=== PATIENT | female | born 1955 | race Caucasian/White ===

== ENCOUNTER 2017-02-25 12:41 | Inpatient (IN) | payer BC ==
--- NOTE | ~2017-02-25 | HP ---
History And Physical [place] [id number] [facility] [place]. [address] NAME: BRIDGETTE FUENTES : 53 STATUS : ADM IN [facility]#: [id number] AGE: 61 ADM/REG DATE : 02/25/17 MR#: [id number] REPORT SERV DATE: 02/25/17 DICTATED BY: FAIZA BROWNING DATE: 02/25/17 REPORT STATUS : Draft TRANSCRIBED BY: JONNY DATE: 02/25/17 DATE OF ADMISSION: 02/25/2017 CHIEF COMPLAINT: Left-sided chest pain and shortness of breath. HISTORY OF PRESENT ILLNESS: The patient is a very pleasant 61-year-old white female. She states about three weeks ago, she noticed some pain in her left side of her chest wall. She had extensive coughing over the next few weeks, felt short of breath, but did not seek medical care until today when she went to walk-in clinic. She was told she had some fluid around her left lung and presented to [facility] Emergency Department. She has not had fever. She has not had anything in the way of sputum. She states she just tends to cough when she is upright. She has a history of previous tobacco abuse, quit some 18 years ago. She has really no other complaints today. PAST MEDICAL HISTORY: Positive for dry eyes. PAST SURGICAL HISTORY: She has had two C-sections, cholecystectomy, and left adrenalectomy for an unknown reason. FAMILY HISTORY: Her father of lung cancer but she was a heavy smoker. Her mom had a cerebral hemorrhage and at 62. HOME MEDICATIONS: Reviewed and attached. REVIEW OF SYSTEMS: Full 10-point review of systems obtained. Pertinent positives mentioned in the HPI. PHYSICAL EXAMINATION: VITAL SIGNS: Blood pressure 127/78, temperature 97.4, pulse 80, respiratory rate 16, sats are 99% on room air. GENERAL: Well-developed white female, in no apparent distress. HEENT: Normocephalic, atraumatic. Throat is clear. NECK: Supple. HEART: Regular rate and rhythm. LUNGS: Grossly clear. ABDOMEN: Soft, Nontender, nondistended. EXTREMITIES: Warm and dry. SKIN: Intact. She has no peripheral edema. LABORATORY AND X-RAY: Hemoglobin and hematocrit 15 and 45, white count 8.2, platelets are 211. Coags are normal. Initial chest x-ray showed a large left pneumothorax. Chemistry: Basic metabolic panel is normal. Glucose is 122, calcium 9.6, magnesium 2.1. Troponin is 0.02. TSH is normal. BNP is normal. Follow up chest x-ray after chest tube placement shows reduced pneumothorax on the left side. ASSESSMENT/PLAN: History And Physical [address] [place]. [address] NAME: BRIDGETTE FUENTES : 53 STATUS : ADM IN [facility]#: [id number] AGE: 61 ADM/REG DATE : 02/25/17 MR#: [id number] REPORT SERV DATE: 02/25/17 DICTATED BY: FAIZA BROWNING DATE: 02/25/17 REPORT STATUS : Draft TRANSCRIBED BY: JONNY DATE: 02/25/17 1. Spontaneous pneumothorax in patient with previous tobacco abuse. We will place oxygen. We will continue chest tube for now. We will have Pulmonary to see her in consultation to help with decision regarding pulling of chest tube and management. 2. Deep venous thrombosis prophylaxis, subcutaneous heparin. 3. Disposition, pending above aforementioned plan and workup. ELENA/JONNY Faiza Browning M.D. / [id number] CC: Rell Maher M.D.
--- NOTE | ~2017-02-25 | OP ---
Record Of Operation [facility] [address] [place]. [address] NAME: BRIDGETTE FUENTES : 53 STATUS : ADM Diana PAT#: [id number] AGE: 61 ADM/REG DATE : 02/25/17 MR#: [id number] REPORT SERV DATE: 02/28/17 DICTATED BY: ADAM MALONEY JR. DATE: 02/28/17 REPORT STATUS : Draft TRANSCRIBED BY: MODL DATE: 02/28/17 DATE OF PROCEDURE: 02/28/2017 PREOPERATIVE DIAGNOSIS: Primary spontaneous pneumothorax with persistent air leak. POSTOPERATIVE DIAGNOSIS: Primary spontaneous pneumothorax with persistent air leak. NAME OF OPERATION: Bronchoscopy, left thoracoscopy with left lower lobe bullectomy, parietal pleurectomy, chemical pleurodesis with Betadine, intercostal nerve block. SURGEON: Adam Maloney M.D. RESIDENT SURGEON: René Atkinson MD. SALES VICE PRESIDENT: Alana Jiménez. ANESTHESIA: General endotracheal. FINDINGS: The patient was noted to have a small bullous lesion in the base of the left lower lobe. We could not demonstrate any other air leaks. We could not find the apical blebs. A saline test was performed in which no air leaks were seen after the wedge excision. The parietal pleurectomy as well as chemical pleurodesis were performed. On bronchoscopy, there was no endobronchial lesions or contraindications to surgery. Mucous secretions were evacuated. There was a lot of subcutaneous emphysema from her obvious pneumothorax and air leak. DETAILS OF OPERATION: After adequate general anesthesia, the patient was intubated. Her left lung was medially isolated. A bronchoscopy was performed noting no endobronchial lesions. Mucous secretions were evacuated. A left-sided double-lumen tube was then secured. The patient was positioned in the right lateral decubitus position. The left chest was prepped and draped in routine sterile fashion. A small incision was made overlying the lower intercostal space. A separate anterior trocar incision was also made. Through these two incision sites the above findings were noted. There was a bullous lesion in the left lower lobe at the base, which was wedged out with multiple firings of [place] stapler with tissue reinforcements. An intercostal nerve block was then performed. The parietal pleurectomy was then performed. Adequate hemostasis was obtained. A 20 mL of Betadine mixed with 80 mL of normal saline was then instilled in the chest cavity. A 28- Icelandic chest tube was placed. The lung was reinflated. The trocar sites were closed with running Vicryl sutures. The skin was closed with running monofilament suture. A Dermabond dressing was applied and the procedure was terminated at this point. The patient tolerated the procedure well and taken to recovery room in stable condition. AMY/JONNY Record Of [address] [place]. [address] NAME: BRIDGETTE FUENTES : 53 STATUS : ADM Diana PAT#: [id number] AGE: 61 ADM/REG DATE : 02/25/17 MR#: [id number] REPORT SERV DATE: 02/28/17 DICTATED BY: ADAM MALONEY JR. DATE: 02/28/17 REPORT STATUS : Draft TRANSCRIBED BY: JONNY DATE: 02/28/17 Adam Maloney Jr., M.D. / [id number] CC: Rell Fernando M.D.
--- NOTE | ~2017-02-25 | CN ---
Consultation Report [facility] [address] [place]. [address] NAME: BRIDGETTE FUENTES : 53 STATUS : ADM Diana PAT#: [id number] AGE: 61 ADM/REG DATE : 02/25/17 MR#: [id number] REPORT SERV DATE: 02/28/17 DICTATED BY: ADAM MALONEY JR. DATE: 02/28/17 REPORT STATUS : Draft TRANSCRIBED BY: MODMadhuri DATE: 02/28/17 CONSULTATION HISTORY AND PHYSICAL DATE OF CONSULTATION: 02/28/2017 REASON FOR CONSULTATION: Left spontaneous pneumothorax. BRIEF HISTORY: This is a 61-year-old white female with a very remote past smoking history who reports she was in her yard eating lunch when she had a tussive episode and then describes progressive pleuritic-type pain as well as shortness of breath, that prompted her to present to the emergency department. She underwent a chest x-ray, which demonstrated a left-sided pneumothorax and a small-bore chest tube was placed. Following the chest tube placement, Pulmonary services managed the chest tube, clamped it for approximately 24 hours and then removed it. Followup chest x-ray approximately 24 hours later demonstrated increasing subcutaneous emphysema as well as increasing left pneumothorax with mediastinal shift. We are asked to see the patient to discuss possible thoracoscopic pleurodesis. PAST MEDICAL HISTORY: Only significant for remote smoking history where she smoked over one pack per day for approximately two to three years, but quit over 18 years ago. SOCIAL HISTORY: The patient is and retired. She denies any alcohol or illicit drug use. FAMILY HISTORY: Significant for father with lung cancer. ALLERGIES: SULFA DRUGS. HOME MEDICATIONS: Include vitamin D3, vitamin B12, and Restasis. REVIEW OF SYSTEMS: Significant for shortness of breath and left-sided pleuritic-type pain. A complete 12-point review of system was performed. All other systems are negative, except for the above- mentioned pertinent positives in the history of present illness. PHYSICAL EXAMINATION: GENERAL: This is a 61-year-old white female, who is alert and oriented, in no acute distress. HEENT: Normocephalic, atraumatic. Pupils are equal, round, and reactive to light. Ears, nose, and throat without lesions or exudate. NECK: Supple with no lymphadenopathy, JVD, or bruits. CHEST: Symmetrical with no obvious chest wall deformities. CARDIOVASCULAR: Regular rate and rhythm. S1 and S2. No murmurs, rubs, or gallops. RESPIRATORY: Decreased breath sounds on the left with palpable subcutaneous emphysema. ABDOMEN: Soft, nontender, and nondistended with positive bowel sounds in all four Consultation Report [place] [id number] [place]. [address] NAME: BRIDGETTE FUENTES : 53 STATUS : ADM Diana PAT#: [id number] AGE: 61 ADM/REG DATE : 02/25/17 MR#: [id number] REPORT SERV DATE: 02/28/17 DICTATED BY: ADAM MALONEY JR. DATE: 02/28/17 REPORT STATUS : Draft TRANSCRIBED BY: JONNY DATE: 02/28/17 quadrants. No hepatosplenomegaly. GENITOURINARY: The patient voids without difficulty. Further examination was deferred. MUSCULOSKELETAL: No obvious kyphosis or scoliosis. SKIN: Warm and dry with normal turgor. No obvious breakdown or lesions noted. PSYCHIATRIC: Normal mood and affect. She is pleasant. NEUROLOGIC: No focal neurological deficits noted. VITAL SIGNS: Oxygen saturation is 93%, blood pressure 127/70, temperature 98.7, heart rate 94, weight 74.5 kg, height 5 feet 3 inches. PAST SURGICAL HISTORY: Significant for section x2 and cholecystectomy. DIAGNOSTIC DATA: Chest x-ray dated 02/28/2017 demonstrated increasing left-sided pneumothorax with early mediastinal shift and persistent vypferyv-dz-covree subcutaneous emphysema within the left chest and neck. CT of the chest dated 02/27/2017 demonstrating a small left pneumothorax with portions of pleural air extending over the left lung apex and along the anterior left lung. Subsegmental atelectasis in the lingular segment and posterior left lower lobe. No underlying pulmonary blebs or bullae left lung, hacx-gz-hodwpiqf pneumomediastinum, and extensive subcutaneous emphysema over the left chest wall. LABORATORY DATA: Laboratories dated 02/28/2017: Sodium 138, potassium 4.0, chloride 101, carbon dioxide 28, BUN 10, creatinine 0.73, glucose 108. White blood cell count 9.1, hemoglobin 15.0, hematocrit 44.3, and platelet count 194. PROBLEM LIST: 1. Spontaneous left-sided pneumothorax. 2. Remote smoking history. IMPRESSION AND PLAN: This is a 61-year-old white female with a spontaneous left-sided pneumothorax. She had expansion of the left lung with a small-bore chest tube placement; however, following removal of the chest tube, she developed an increasing pneumothorax with increasing subcutaneous emphysema. We are asked to see her to discuss possible left thoracoscopy with pleurodesis. I discussed with the patient her options versus chest tube placement or left thoracoscopy with pleurodesis. She would have more success with a thorascopic pleurodesis. The patient agrees with this discussion. I discussed the risks, benefits, and expected outcomes of the procedure as well as that she will need a chest tube to remain for three days, requiring her to be in the hospital over the weekend. She agreed to this. We will plan for left thoracoscopy with pleurodesis today. She is n.p.o. DICTATED BY: Shazia Boucher NP AM/JONNY Consultation Report [address] [address] NAME: BRIDGETTE FUENTES : 53 STATUS : ADM Diana PAT#: [id number] AGE: 61 ADM/REG DATE : 02/25/17 MR#: [id number] REPORT SERV DATE: 02/28/17 DICTATED BY: ADAM MALONEY JR. DATE: 02/28/17 REPORT STATUS : Draft TRANSCRIBED BY: JONNY DATE: 02/28/17 Adam Maloney Jr., M.D. / [id number] CC: Rell Fernando M.D.
--- NOTE | ~2017-02-25 | CN ---
Consultation Report [facility] [address] [place]. [address] NAME: BRIANNA JUAREZ : 53 STATUS : ADM IN PAT#: [id number] AGE: 61 ADM/REG DATE : 02/25/17 MR#: [id number] REPORT SERV DATE: 02/25/17 DICTATED BY: ERICK FAIRCHILD DATE: 02/25/17 REPORT STATUS : Draft TRANSCRIBED BY: JONNY DATE: 02/25/17 CONSULTATION NOTE DATE OF CONSULTATION: 02/25/2017 CHIEF COMPLAINT: Shortness of breath and left-sided pleuritic pain in a patient with a spontaneous left-sided pneumothorax. HISTORY OF PRESENT ILLNESS: Brianna Juarez is a very pleasant 61-year-old female with very minimal past medical history who presents to [facility]'s Emergency Room with complaints of shortness of breath and left-sided pleuritic pain of two to three weeks' duration. It should be noted, Ms. Juarez has not been hospitalized recently and is usually in quite good health. Ms. 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 She does not require supplemental oxygen. She is on no nebulized medications. She states that she quit smoking over 18 years ago. Prior to this time, she smoked approximately one pack a day for two or three years. She largely denies symptomatology related to obstructive sleep apnea. Prior to this recent illness, she described her exercise tolerance as being excellent being able to walk over a city block before experiencing any shortness of breath. Ms. Juarez states that approximately two to three weeks ago, she was weed eating in her yard. She states that she may have had a strong bout of coughing soon after. Within one or two days following this event, she began to experience some degree of shortness of breath. This remained essentially unchanged until more recently she began to develop left-sided pleuritic pain. She became so concerned with these symptoms and she eventually presented to [facility]'s Emergency Room. She did eventually undergo a chest x-ray, which demonstrated a left-sided pneumothorax. She did have a small bore chest tube placed with evacuation of the free air. For the aforementioned reasons, she has been referred to the Pulmonary Service for further assessment. The patient is currently on room air. She denies any shortness of breath. She does have some left-sided chest discomfort primarily secondary to her chest tube. She is not coughing. She is not producing any purulent sputum. She denies any wheezing in her chest. The patient currently denies murmurs, angina, or palpitations. She denies any orthopnea or dependent edema. In regard to constitutional symptoms, she currently denies fever, chills, nausea, vomiting, abdominal pain, or edema. PAST MEDICAL HISTORY: Noncontributory. PAST SURGICAL HISTORY: Consultation Report [address] [place]. [address] NAME: BRIANNA JUAREZ : 53 STATUS : ADM IN PAT#: [id number] AGE: 61 ADM/REG DATE : 02/25/17 MR#: [id number] REPORT SERV DATE: 02/25/17 DICTATED BY: ERICK FAIRCHILD DATE: 02/25/17 REPORT STATUS : Draft TRANSCRIBED BY: JONNY DATE: 02/25/17 1. x2. 2. Cholecystectomy. FAMILY HISTORY: The patient states that her father of lung cancer. SOCIAL HISTORY: The patient is with her currently at bedside. She has children who are in good health. 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 She denies any known exposures to dust, silica, or asbestos. She has no exotic pets within the home. TOBACCO/ALCOHOL: As previously mentioned, the patient quit smoking approximately 18 years ago, prior to this time, she smoked probably one pack a day for a period of two or three years. She denies any recent alcohol or illicit drug use. MEDICATIONS: 1. Cholecalciferol. 2. Cyclosporine ophthalmic. 3. Vitamin B12. ALLERGIES: THE PATIENT HAS KNOWN ALLERGY TO SULFADIAZINE. REVIEW OF SYSTEMS: Complete review of systems was performed with pertinent positives and negatives contained within the body of the HPI. PHYSICAL EXAMINATION: VITAL SIGNS: Blood pressure is 188/84, heart rate is 83, T-max is 98.5, respiratory rate is 18, and SpO2 is 98% on room air. GENERAL: The patient is a pleasant, well-nourished/well-developed female who is not currently exhibiting any signs of acute distress. Skin: Skin with appropriate texture and turgor. No rashes, lesions, or ulcers. Nails are clear without cyanosis or clubbing. HEENT: Head: Skull is normocephalic/atraumatic. Facies symmetric. No masses or lesions. Eyes: Sclera anicteric, conjunctiva pink without exudates. Extra ocular movements intact. Pupils are equal, round, reactive to light. Ears: Auricles and tragus without pain to palpation. Hearing is grossly intact. Nose: Bilateral nasal patency. Sinuses without tenderness upon palpation. Throat: Dentition. Lips, oral mucosa, tongue, palate, and pharynx pink and moist without lesions. Uvula rises equally on phonation. Tongue midline without deviation. NECK: Neck supple. Trachea midline. No cervical lymphadenopathy appreciated. CHEST: Small bore chest tube placed in the left axilla. THORAX/LUNGS: Thorax is symmetric with equal chest rise. Breath sounds audible through entire field. No rales, wheezes, rhonchi. CARDIOVASCULAR: Regular rate and rhythm. No murmurs, rubs, or gallops. Anterior chest without thrills, heaves, or lifts. Consultation Report [address] [place]. [address] NAME: BRIANNA JUAREZ : 53 STATUS : ADM IN [facility]#: [id number] AGE: 61 ADM/REG DATE : 02/25/17 MR#: [id number] REPORT SERV DATE: 02/25/17 DICTATED BY: ERICK FAIRCHILD DATE: 02/25/17 REPORT STATUS : Draft TRANSCRIBED BY: JONNY DATE: 02/25/17 ABDOMEN: Soft. Non-distended, non-tender. Active bowel sounds in all four quadrants. No hepatosplenomegaly noted. PERIPHERAL VASCULAR: No edema. No varicosities, stasis changes, open sores, ulcerations, or phlebitis. 2+ pulses in radial and dorsalis pedis. MUSCULOSKELETAL: Full AROM and PROM in all joints. No evidence of erythema, deformity, or crepitus. NEUROLOGIC: CN II - XII grossly intact. Good muscle bulk and tone bilaterally. Strength 5/5 throughout. PSYCHIATRIC: Patient demonstrates good judgment and insight. Pt is A&O x 3. DIAGNOSTIC DATA: Chest x-ray reveals placement of a Pneumodart and pneumothorax in the left chest. Pneumothorax has reduced. IMPRESSION: Spontaneous left-sided pneumothorax, status post chest tube placement. PLAN: At this time, we will plan for removal of the section source overnight. We will check a PA and lateral in the morning. We will proceed with a clamping trial pending the previous results. We did discuss her increased propensity for spontaneous pneumothorax in the future. The aforementioned impression and plan has been discussed with Dr. Mcleod. We will follow further recommendations. We thank you for this consult and look forward to participating in the care of Ms. Brianna Juarez. GBS/MODL Erick Fairchild PA-C / [id number] CC: Rell Maher M.D.
--- NOTE | ~2017-02-25 | DS ---
Discharge Summary [facility] [address] [facility] [place]. [address] NAME: BRIDGETTE FUENTES : 53 STATUS : DIS IN PAT#: [id number] AGE: 61 ADM/REG DATE : 02/25/17 MR#: [id number] REPORT SERV DATE: 03/05/17 DICTATED BY: AKI HORTA DATE: 03/04/17 REPORT STATUS : Draft TRANSCRIBED BY: MODMadhuri DATE: 03/04/17 ADMISSION DATE: 02/25/2017 DISCHARGE DATE: 03/04/2017 DISCHARGE DIAGNOSES: Include: 1. Spontaneous left pneumothorax. 2. Left lower extremity bullous lesion. 3. Subcutaneous air. 4. History of dry eyes. 5. History of tobacco use. DISCHARGE MEDICATIONS: As follows: Restasis ophthalmic drops twice a day in both eyes, vitamin D3 500 units daily, vitamin B12 one tablet daily, and Percocet 5/325 one to two tablets every four to six hours p.r.n. for pain. HISTORY OF PRESENT ILLNESS: A very pleasant 61-year-old white female who presented originally with left-sided chest pain and shortness of breath. Please see the initial H and P of Dr. Jolanta Correa. This patient admitted to the Hospitalist Service for further evaluation and treatment of a spontaneous pneumothorax. CONSULTS DURING THIS ADMISSION: Include Pulmonary, Derrick Sterling; and Thoracic Surgery, Dr. Maloney. PROCEDURES AND IMAGING DURING THIS ADMISSION: Include a CT of the chest, this one was performed on 02/27/2017 showing a small left pneumothorax 20% by volume left hemithorax, portions of pleural air extending over the left lung apex, impi-xw-jirfmhcq pneumomediastinum extending cranial to the jeronimo into the neck where it communicates with left chest wall and left neck subcutaneous emphysema and extensive subcutaneous emphysema over the left chest wall extending into the left neck. SURGICAL PROCEDURE: On 02/28/2017, bronchoscopy, left thoracoscopy with left lower lobe bullectomy, parietal pleurectomy, chemical pleurodesis with Betadine, intercostal nerve block. HOSPITAL COURSE: I began seeing the patient on 02/26/2017 where the patient was resting well. She had a chest tube placement performed urgently upon admission and Pulmonary Service was following for resolution of pneumothorax. She was having no new complaints, no distress, no shortness of breath. Has followed up on chest x-rays, plan was to pull her chest tube on 02/27/2017, but when this was performed, she still had a significant air and fluid output. However, a followup chest x-ray after chest tube was removed, did show some slight improvement overall. On the evening of 02/27/2017, however, the patient had an increased amount of shortness of breath and chest pain and it was determined her pneumothorax had worsened a good deal and the stat CT was ordered as described above. She was given aggressive supportive care and consultation was placed to Thoracic Surgery, Dr. Maloney, who then performed the above-described surgery on 02/28/2017, which she tolerated and recovered well from. Her chest tube remained in place from 03/01/2017 until 03/04/2017 Discharge Summary [address] [place]. [address] NAME: BRIDGETTE FUENTES : 53 STATUS : DIS IN PAT#: [id number] AGE: 61 ADM/REG DATE : 02/25/17 MR#: [id number] REPORT SERV DATE: 03/05/17 DICTATED BY: AKI HORTA DATE: 03/04/17 REPORT STATUS : Draft TRANSCRIBED BY: MODL DATE: 03/04/17 and the subcutaneous air also began to dissipate and improve a great deal. Her chest tube was ultimately pulled and removed on the morning of 03/04/2017 and she tolerated the procedure well. Chest x-ray had improved. She was felt safe for discharge home to follow up with Dr. Maloney, outpatient on 03/25/2017, and I have instructed her to follow up with her primary care as needed. LABORATORY DATA: Lab work on date of discharge, sodium 138, potassium 4.0, BUN of 10, creatinine 0.65, white blood cells 5.8, hemoglobin 12.8, and hematocrit 38.2. The patient was in agreement with the plan going forward. Questions were answered at bedside at length. We appreciate the support and help of both Pulmonology and Thoracic Surgery during this patient's admission. CSC/MODL Aki Horta NP / [id number] CC: Rell Fernando M.D.
[2017-02-25 11:41] LABS: BASOPHILS 0.2 %; BASOPHILS ABSOLUTE 0.02 10/3/uL (0.0-0.16); EOSINOPHILS 2.1 %; EOSINOPHILS ABSOLUTE 0.17 10/3/uL (0.0-0.53); HEMATOCRIT 45.2 % (36.0-48.0); HEMOGLOBIN 15.6 g/dL (12.0-16.0); IMMATURE GRANULOCYTES 0.4 %; IMMATURE GRANULOCYTES ABSOLUTE 0.03 10/3/uL (0.0-0.11); LYMPHOCYTES 22.2 %; LYMPHOCYTES ABSOLUTE 1.83 10/3/uL (0.67-4.30); MEAN CORPUS HGB CONC 34.5 g/dL (32.0-36.0); MEAN CORPUSCULAR VOLUME 104.4 fL (80-100); MEAN PLATELET VOLUME 11.1 fL (9.2-13.0); MONOCYTES 7.2 %; MONOCYTES ABSOLUTE 0.59 10/3/uL (0.21-1.20); NEUTROPHILS 67.9 %; NEUTROPHILS ABSOLUTE 5.59 10/3/uL (2.02-8.40); PLATELET COUNT 211 10/3/uL (150-400); RBC DISTRIBUTION WIDTH 11.8 % (12.0-16.0); RED CELL COUNT 4.33 10/6/uL (4.0-5.6); WHITE BLOOD CELLS 8.2 10/3/uL (4.5-10.5)
[2017-02-25 11:42] LABS: MANUAL DIFF NO %
[2017-02-25 11:49] LABS: PARTIAL THROMBO TIME 25.7 SEC (22.5-37.2); PROTIME (NOT ORD) 13.5 SEC (12.0-14.5)
[2017-02-25 11:51] LABS: D-DIMER QUANTITATIVE 0.47 ug/mLFEU (< 0.50)
[2017-02-25 11:56] LABS: BUN (BLOOD UREA NITROGEN) 13 MG/DL (6-23); CALCIUM, SERUM 9.6 MG/DL (8.5-10.4); CHEST PAIN PROFILE TAT 0 Hrs 19 Mins; CHLORIDE, SERUM 105 MMOL/L (96-112); CO2 (CARBON DIOXIDE) 28 MMOL/L (24-34); CREATININE 0.81 MG/DL (0.55-1.02); GFR AFRICAN AMERICAN 90 ML/MIN (>=60); GFR NON AFRICAN AMERICAN 78 ML/MIN (>=60); POTASSIUM, SERUM 3.6 MMOL/L (3.5-5.3); SODIUM, SERUM 140 MMOL/L (135-148); TROPONIN I <0.02 NG/ML (<0.05)
[2017-02-25 11:57] LABS: GLUCOSE, SERUM 122 MG/DL (60-99)
[~2017-02-25 12:41] MED LIST: ERY-TAB500 MG PO; NEO500 PO; OS250 PO; PRILO PO; RESTASIS OPH; VITAMIN B-12 PO; VITAMIN D31000 UNIT PO
[2017-02-26 04:46] LABS: BUN (BLOOD UREA NITROGEN) 15 MG/DL (6-23); CALCIUM, SERUM 9.2 MG/DL (8.5-10.4); CHLORIDE, SERUM 106 MMOL/L (96-112); CO2 (CARBON DIOXIDE) 28 MMOL/L (24-34); CREATININE 0.73 MG/DL (0.55-1.02); GFR AFRICAN AMERICAN 102 ML/MIN (>=60); GFR NON AFRICAN AMERICAN 88 ML/MIN (>=60); GLUCOSE, SERUM 101 MG/DL (60-99); SODIUM, SERUM 141 MMOL/L (135-148)
[2017-02-28 04:18] LABS: BASOPHILS 0.1 %; BASOPHILS ABSOLUTE 0.01 10/3/uL (0.0-0.16); EOSINOPHILS 0.7 %; EOSINOPHILS ABSOLUTE 0.06 10/3/uL (0.0-0.53); HEMATOCRIT 44.3 % (36.0-48.0); IMMATURE GRANULOCYTES 0.3 %; IMMATURE GRANULOCYTES ABSOLUTE 0.03 10/3/uL (0.0-0.11); LYMPHOCYTES 18.5 %; LYMPHOCYTES ABSOLUTE 1.68 10/3/uL (0.67-4.30); MEAN CORPUS HGB CONC 33.9 g/dL (32.0-36.0); MEAN CORPUSCULAR HEMOGLOB 35.7 pg (26.0-34.0); MEAN CORPUSCULAR VOLUME 105.5 fL (80-100); MEAN PLATELET VOLUME 11.1 fL (9.2-13.0); MONOCYTES 5.1 %; MONOCYTES ABSOLUTE 0.46 10/3/uL (0.21-1.20); NEUTROPHILS 75.3 %; NEUTROPHILS ABSOLUTE 6.84 10/3/uL (2.02-8.40); PLATELET COUNT 194 10/3/uL (150-400); RBC DISTRIBUTION WIDTH 11.7 % (12.0-16.0); WHITE BLOOD CELLS 9.1 10/3/uL (4.5-10.5)
[2017-02-28 04:21] LABS: MANUAL DIFF NO %
[2017-02-28 04:35] LABS: CALCIUM, SERUM 9.1 MG/DL (8.5-10.4); CHLORIDE, SERUM 101 MMOL/L (96-112); CO2 (CARBON DIOXIDE) 28 MMOL/L (24-34); CREATININE 0.73 MG/DL (0.55-1.02); GFR AFRICAN AMERICAN 102 ML/MIN (>=60); GFR NON AFRICAN AMERICAN 88 ML/MIN (>=60); GLUCOSE, SERUM 108 MG/DL (60-99); SGOT(AST) 32 U/L (5-40); SGPT(ALT) 43 U/L (5-65); SODIUM, SERUM 138 MMOL/L (135-148); TOTAL BILIRUBIN 0.9 MG/DL (0-1.2); TOTAL PROTEIN 7.4 G/DL (6.0-8.5); TROPONIN I <0.02 NG/ML (<0.05)
[2017-02-28 04:36] LABS: A/G RATIO 0.9 (0.7-1.9); ALBUMIN 3.5 G/DL (3.5-5.0); ALKALINE PHOSPHATASE 82 U/L (45-117); BUN (BLOOD UREA NITROGEN) 10 MG/DL (6-23); GLOBULIN 3.9 G/DL (2.5-4.1)
[2017-02-28 06:38] LABS: PROCALCITONIN 0.05 ng/mL (<0.5)
[2017-02-28 16:23] LABS: BASOPHILS 0.1 %; BASOPHILS ABSOLUTE 0.01 10/3/uL (0.0-0.16); EOSINOPHILS 0.6 %; EOSINOPHILS ABSOLUTE 0.08 10/3/uL (0.0-0.53); HEMATOCRIT 43.9 % (36.0-48.0); HEMOGLOBIN 14.9 g/dL (12.0-16.0); IMMATURE GRANULOCYTES 0.4 %; IMMATURE GRANULOCYTES ABSOLUTE 0.05 10/3/uL (0.0-0.11); LYMPHOCYTES ABSOLUTE 1.83 10/3/uL (0.67-4.30); MEAN CORPUS HGB CONC 33.9 g/dL (32.0-36.0); MEAN CORPUSCULAR HEMOGLOB 35.7 pg (26.0-34.0); MEAN CORPUSCULAR VOLUME 105.3 fL (80-100); MEAN PLATELET VOLUME 11.3 fL (9.2-13.0); MONOCYTES 4.1 %; MONOCYTES ABSOLUTE 0.54 10/3/uL (0.21-1.20); NEUTROPHILS 80.8 %; NEUTROPHILS ABSOLUTE 10.59 10/3/uL (2.02-8.40); PLATELET COUNT 213 10/3/uL (150-400); RBC DISTRIBUTION WIDTH 11.7 % (12.0-16.0); RED CELL COUNT 4.17 10/6/uL (4.0-5.6)
[2017-02-28 16:25] LABS: MANUAL DIFF NO %; WHITE BLOOD CELLS 13.1 10/3/uL (4.5-10.5)
[2017-02-28 16:33] LABS: BUN (BLOOD UREA NITROGEN) 13 MG/DL (6-23); CALCIUM, SERUM 8.8 MG/DL (8.5-10.4); CHLORIDE, SERUM 102 MMOL/L (96-112); CO2 (CARBON DIOXIDE) 26 MMOL/L (24-34); CREATININE 0.75 MG/DL (0.55-1.02); GFR AFRICAN AMERICAN 99 ML/MIN (>=60); GFR NON AFRICAN AMERICAN 85 ML/MIN (>=60); GLUCOSE, SERUM 148 MG/DL (60-99); POTASSIUM, SERUM 3.9 MMOL/L (3.5-5.3); SODIUM, SERUM 137 MMOL/L (135-148)
[2017-03-04 05:09] LABS: BASOPHILS 0.2 %; BASOPHILS ABSOLUTE 0.01 10/3/uL (0.0-0.16); EOSINOPHILS 3.1 %; EOSINOPHILS ABSOLUTE 0.18 10/3/uL (0.0-0.53); HEMOGLOBIN 12.8 g/dL (12.0-16.0); IMMATURE GRANULOCYTES 0.2 %; IMMATURE GRANULOCYTES ABSOLUTE 0.01 10/3/uL (0.0-0.11); LYMPHOCYTES 28.5 %; LYMPHOCYTES ABSOLUTE 1.64 10/3/uL (0.67-4.30); MEAN CORPUS HGB CONC 33.5 g/dL (32.0-36.0); MEAN CORPUSCULAR HEMOGLOB 34.9 pg (26.0-34.0); MEAN CORPUSCULAR VOLUME 104.1 fL (80-100); MEAN PLATELET VOLUME 10.8 fL (9.2-13.0); MONOCYTES 8.9 %; MONOCYTES ABSOLUTE 0.51 10/3/uL (0.21-1.20); NEUTROPHILS 59.1 %; NEUTROPHILS ABSOLUTE 3.41 10/3/uL (2.02-8.40); PLATELET COUNT 228 10/3/uL (150-400); RBC DISTRIBUTION WIDTH 11.9 % (12.0-16.0); RED CELL COUNT 3.67 10/6/uL (4.0-5.6)
[2017-03-04 05:12] LABS: HEMATOCRIT 38.2 % (36.0-48.0); MANUAL DIFF NO %; WHITE BLOOD CELLS 5.8 10/3/uL (4.5-10.5)
[2017-03-04 05:22] LABS: BUN (BLOOD UREA NITROGEN) 10 MG/DL (6-23); CALCIUM, SERUM 9.6 MG/DL (8.5-10.4); CHLORIDE, SERUM 102 MMOL/L (96-112); CO2 (CARBON DIOXIDE) 34 MMOL/L (24-34); CREATININE 0.65 MG/DL (0.55-1.02); GFR AFRICAN AMERICAN 110 ML/MIN (>=60); GFR NON AFRICAN AMERICAN 95 ML/MIN (>=60); GLUCOSE, SERUM 103 MG/DL (60-99); SODIUM, SERUM 138 MMOL/L (135-148)
[2017-03-04] MEDS ORDERED: PCET PO (09:31)
== END 2017-03-04 10:15 | disposition home or self-care (01) | DRG 164 ==
LOC: ER 12:41 → 5NO 13:43
PROVIDERS: Hospitalist; Internal Medicine; Nurse Practitioner Family; Thoracic Surgery (Cardiothoracic Vascular Surgery)
PROC: 0BBJ4ZZ Excision of Left Lower Lung Lobe, Percutaneous Endoscopic Approach (ICD-10-PCS; 2017-02-28)
PROC: 3E0T3BZ Introduction of Anesthetic Agent into Peripheral Nerves and Plexi, Percutaneous Approach (ICD-10-PCS; 2017-02-28)
PROC: 3E0L3GC Introduction of Other Therapeutic Substance into Pleural Cavity, Percutaneous Approach (ICD-10-PCS; 2017-02-28)
PROC: 0BBP4ZZ Excision of Left Pleura, Percutaneous Endoscopic Approach (ICD-10-PCS; principal; 2017-02-28 11:00)
DX: J93.11 Primary spontaneous pneumothorax (principal); J98.11 Atelectasis; T81.82XA Emphysema (subcutaneous) resulting from a procedure, initial encounter; H04.123 Dry eye syndrome of bilateral lacrimal glands; Z87.891 Personal history of nicotine dependence
CPT/HCPCS: 71010; 71020; 71250; 80048; 80053; 81001; 83735; 83880; 84145; 84443; 84484; 85025; 85379; 85610; 85730; 87641; 88305; 88307; 93005; 94640; 96374; 99285; A9270-GY; J0690; J2250; J2370; J2405; J2710; J2795; J3010; J3370